=== PATIENT | male | born 1985 | race Caucasian/White ===

== ENCOUNTER → 2018-09-28 | Outpatient (CLI) | payer OTHER ==
--- NOTE | 2018-09-29 14:07 | US ---
EXAM DESCRIPTION: Abdomen,Complete: Ultrasound. CLINICAL HISTORY: ELEVATED LFT'S COMPARISON: None Available. TECHNIQUE: Transabdominal scannin-dimensional and Doppler modes. FINDINGS: Gallbladder: Normal size with no intraluminal stones or sludge. Wall thickness 2.1 mm is normal with no fluid. Nontender with transducer pressure. Common bile duct: 3.2 mm is normal caliber. Liver: Liver demonstrates diffuse increased echogenicity. Long axis of right lobe is 16.5 cm. Normal portal vein flow and normal caliber. No intrahepatic duct dilatation. Smooth capsule with no ascites. Pancreas: Normal echogenicity of the included segments. Duct not seen.. Abdominal aorta: Normal caliber from the proximal segment to the distal bifurcation. IVC: visualized; normal caliber. Spleen normal echogenicity; long axis measurement is 12.0 cm. Right kidney: 9.9 cm long axis. Normal cortical thickness and echogenicity. No hydronephrosis, no perinephric fluid, no echogenic stones. Left kidney: 11.1 cm long axis. Normal cortical thickness. No hydronephrosis. No perinephric fluid. No echogenic stones. IMPRESSION: 1. Liver with mild steatosis but no enlargement. Normal vascularity and ducts. Smooth capsule no ascites. 2. Gallbladder is negative with normal caliber of the common bile duct. 3. Pancreas, spleen, and bilateral kidneys are unremarkable. Normal caliber of the IVC and aorta. Electronically signed by: Ajay Vera MD 09/29/2018 2:04 PM CDT
== END ==
LOC: US 14:45
PROVIDERS: ATTEND Nurse Practitioner Family
DX: R94.5 Abnormal results of liver function studies (principal)

== ENCOUNTER → 2020-01-31 | Outpatient (CLI) | payer BC | LOC: YCFC.O 12:28 | PROVIDERS: ATTEND Nurse Practitioner Family | DX: Z20.828 Contact with and (suspected) exposure to other viral communicable diseases (principal) ==